=== PATIENT | male | born 1975 | race Caucasian/White ===

== ENCOUNTER 2021-06-28 21:12 | Emergency (ER) | payer OTHER, SELFPAY ==
[2021-06-28 21:16] VITALS: BP 138/79; PULSE 83; RESP 18; TEMP 36.6; O2SAT 98
--- NOTE | 2021-06-28 22:55 | ED.EYEPROB ---
HPI - Eye Problem General Chief complaint: Eye Problems Stated complaint: right eye pain Time Seen by Provider: 06/28/21 22:54 Source: patient Mode of arrival: ambulatory Limitations: no limitations History of Present Illness HPI Narrative: Patient is a 45-year-old male who presents for evaluation of right eye pain. 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 Patient with pain in the right eye, watering, tearing, mild redness. Patient denies visual change. Patient does not wear contact lenses or corrective glasses. Patient is up-to-date on his tetanus within the last 5 to 10 years. Patient denies any significant light sensitivity. He was able to drive himself to this facility to be evaluated. Related Data Allergies Allergy/AdvReac Type Severity Reaction Status Date / Time No Known Allergies Allergy Verified 06/28/21 21:37 Review of Systems Review of Systems: CONSTITUTIONAL: Denies fever HEENT: Right eye pain, redness, tearing CARDIOVASCULAR: Denies chest pain RESPIRATORY: Denies cough or dyspnea. GASTROINTESTINAL: Denies abdominal pain SKIN: Denies rash MUSCULOSKELETAL: Denies back pain NEUROLOGIC: Denies headache [facility] Social History Social History (Updated 06/29/21 @ 00:18 by Oxana Jackson MD) Smoking status: Current some day smoker Alcohol intake: current Alcohol use details: rare Occupation/Education: occupation Additional occupation/education comments: [place] [employer] Gender identity (if verbalized by the patient): Male Exam Narrative: GENERAL: Awake, alert, conversant HEAD: Normocephalic, atraumatic. EYES: 2+ PERRLA and EOMI. Tearing of the right eye. Conjunctival injection, right eye ENT: Nares clear, no rhinorrhea or epistaxis. Mucous membranes moist. NECK: Supple. CHEST: No respiratory distress, breathing even and non labored HEART: Regular rate, sinus rhythm ABDOMEN:Non distended, non tender EXTREMITIES: Normal range of motion. No edema. SKIN: Warm, dry, no rash. NEURO:No focal deficits. Alert and oriented x3 Course Vital Signs Vital signs: Vital Signs Temperature 36.6 C 06/28/21 21:16 Pulse Rate 83 06/28/21 21:16 Respiratory Rate 18 06/28/21 21:16 Blood Pressure 138/79 06/28/21 21:16 Pulse Oximetry 98 06/28/21 21:16 Temperature 36.6 C 06/28/21 21:16 Pulse Rate 83 06/28/21 21:16 Respiratory Rate 18 06/28/21 21:16 Blood Pressure 138/79 06/28/21 21:16 Pulse Oximetry 98 06/28/21 21:16 MDM - Eye Problem MDM Narrative Medical decision making narrative: Patient presenting for evaluation of foreign body sensation in the right eye. At the time of assessment, ABCs are intact and vital signs are stable. Visual acuity is intact, 20/20, OD, OS, OU. Patient does have right conjunctival injection, tearing fluorescein and tetracaine were applied to the right eye. Timur sign is negative. Patient does have a corneal abrasion overlying the inferior aspect of the pupil, does appear to have a foreign body overlying the superior aspect of the right pupil. After speaking with [facility] ophthalmology, they will remove the foreign body tomorrow due to location overlying the pupil. Patient was also offered transfer for evaluation by ophthalmology tonight at [facility] emergency department, with after discussing the risks and benefits of being seen in the ER tonight versus waiting until tomorrow morning, patient opted to be seen on an outpatient setting in the morning. Patient has an appointment this morning, 10 AM with [facility] ophthalmology. I advised the patient to be prescribed moxifloxacin to place in the right eye 4 times daily. This prescription as well as pain medication was called to the patient's pharmacy. Patient is up-to-date on his tetanus and does not require tetanus update. Patient was advised that if his visu
[2021-06-29 00:33] VITALS: BP 135/75; PULSE 90; RESP 16; O2SAT 98
== END 2021-06-29 00:29 | disposition home or self-care (01) ==
PROVIDERS: Emergency Provider Emergency Medicine
DX: T15.01XA Foreign body in cornea, right eye, initial encounter (principal); Y29.XXXA Contact with blunt object, undetermined intent, initial encounter
CPT/HCPCS: 99283

== ENCOUNTER 2023-02-10 01:34 | Day surgery (SDC) | payer BC, SELFPAY ==
[2023-02-03 15:54] VITALS: BMI 29.9
[2023-02-10 10:09] VITALS: BP 109/65; PULSE 76; RESP 16; TEMP 36.6; O2SAT 97
[2023-02-10] MEDS: LACTATED RINGERS 1,000 ML 150 ML IV CONT (10:21)
--- NOTE | 2023-02-10 10:55 | PM.HPGS ---
History of Present Illness History of Present Illness Consent: Risks, benefits, and alternatives have been discussed and questions answered. Patient agrees to proceed with procedure. Chief complaint: neoplasm screening Narrative: Willy Geller is a 47 year old male Presents for screening colonoscopy. Patient has a current weight appetite and bowel movements are normal. Patient denies abdominal pain. He has had no bleeding. Family history is noncontributory. Review of Systems Review of Systems: Review of systems noncontributory. [facility] Social History Social History (Updated 06/29/21 @ 00:18 by Oxana Jackson MD) Smoking packs per day: 3 Smoking cigarettes per day: 60.0 Smoking status: Former smoker Tobacco type: cigarettes Alcohol intake: current Drinks per week: 4 Alcohol use details: rare Substance use: current Substance use type: marijuana Other substance usage details: occasionally Living arrangements: with family Occupation/Education: occupation Additional occupation/education comments: [employer] Gender identity (if verbalized by the patient): Male Spiritual care concerns: No Meds Home Medications and Allergies Home Medications Medication Instructions Recorded Confirmed Type clonazepam 0.5 mg tablet 0.5 mg PO TID PRN Anxiety 02/03/23 02/03/23 History escitalopram oxalate 20 mg tablet 20 mg PO DAILY 02/03/23 02/03/23 History lamotrigine 200 mg tablet 200 mg PO DAILY 02/03/23 02/03/23 History serdexmethylphenidate 52.3 1 tablet PO DAILY 02/03/23 02/03/23 History mg-dexmethylphenidate 10.4 mg capsule (Azstarys) Allergies Allergy/AdvReac Type Severity Reaction Status Date / Time No Known Allergies Allergy Verified 02/10/23 10:08 Vital Signs Vital Signs - 24 hr 02/10/23 10:09 Temperature 97.9 F Pulse Rate 76 Respiratory Rate 16 Blood Pressure 109/65 Pulse Oximetry 97 Oxygen Delivery Room Air Exam Narrative: Physical exam reveals patient to be alert. Vital signs stable. HEENT exam is unremarkable. Patient is anicteric. Lungs are clear to auscultation and percussion. Heart is without murmur or extra sounds. Abdomen bowel sounds are present soft nontender with no organomegaly. Digital external rectal exam normal. Assessment and Plan Assessment and plan (1) Encounter for screening colonoscopy: Code(s): Z12.11 - Encounter for screening for malignant neoplasm of colon Status: Acute Assessment and Plan: Patient presents today for screening colonoscopy. Appears to be at average risk for colon polyps. Further recommendations may be given after endoscopy.
--- NOTE | 2023-02-10 11:26 | P.PNAN_ITS ---
Anes - Initial Pre Proc Eval Procedure: Operation Date: 02/10/23 11:30 Proposed Procedures p Screening Colonoscopy - Sawyer Arriaga MD Date/Time: 02/10/23 11:26 Surgeon: Sawyer Arriaga MD Pre Op Diagnosis: neoplasm screening Patient Data Age: 47 Gender: M Height: 1.83 m Weight: 100.3 kg Last Vital Signs Temp 97.9 F 02/10/23 10:09 Pulse 76 02/10/23 10:09 Resp 16 02/10/23 10:09 BP 109/65 02/10/23 10:09 Pulse Ox 97 02/10/23 10:09 O2 Del Method Room Air 02/10/23 10:09 Allergies Allergy/AdvReac Type Severity Reaction Status Date / Time No Known Allergies Allergy Verified 02/10/23 10:08 Home Medications Medication Instructions Recorded Confirmed Type clonazepam 0.5 mg tablet 0.5 mg PO TID PRN Anxiety 02/03/23 02/03/23 History escitalopram oxalate 20 mg tablet 20 mg PO DAILY 02/03/23 02/03/23 History lamotrigine 200 mg tablet 200 mg PO DAILY 02/03/23 02/03/23 History serdexmethylphenidate 52.3 1 tablet PO DAILY 02/03/23 02/03/23 History mg-dexmethylphenidate 10.4 mg capsule (Azstarys) Patient hx anesthesia problems: none Family hx anesthesia problems: none Results Review: All pre-operative results and documents have been reviewed as part of the pre- operative evaluation. [facility] Social History Social History (Updated 06/29/21 @ 00:18 by Oxana Jackson MD) Smoking packs per day: 3 Smoking cigarettes per day: 60.0 Smoking status: Former smoker Tobacco type: cigarettes Alcohol intake: current Drinks per week: 4 Alcohol use details: rare Substance use: current Substance use type: marijuana Other substance usage details: occasionally Living arrangements: with family Occupation/Education: occupation Additional occupation/education comments: [employer] [place] [employer] Gender identity (if verbalized by the patient): Male Spiritual care concerns: No Anes - Eval Final PreProcedure Day of Procedure 02/10/23 11:26 Patient weight: overweight Heart: regular rate and rhythm Lungs: clear to auscultation Airway: Mallampati scale class II Neurological: alert and oriented Last oral intake: >/= 8 hours ASA classification: II Emergent: no Anesthetic plan: proceed Anesthesia type and monitoring: general GIVS and standard monitoring Results Review: All pre-operative results and documents have been reviewed as part of the pre- operative evaluation. Informed Consent: The patient's anesthetic plan and its attendant risks and benefits were discussed with the patient/family/POA. Questions were solicited and answers provided to the satisfaction of the patient/family/POA.
[2023-02-10 11:51] VITALS: BP 91/56; PULSE 64; RESP 15; O2SAT 94
[2023-02-10 12:01] VITALS: BP 130/93; PULSE 59; RESP 18; O2SAT 99
[2023-02-10 12:11] VITALS: BP 124/87; PULSE 60; RESP 19; O2SAT 98
== END 2023-02-10 12:25 | disposition home or self-care (01) ==
PROVIDERS: PCP Family Medicine; Visit Provider Internal Medicine Gastroenterology
PROC: 0DJD8ZZ Inspection of Lower Intestinal Tract, Via Natural or Artificial Opening Endoscopic (ICD-10-PCS; CPT 45378; principal; 2023-02-10 11:30)
DX: Z12.11 Encounter for screening for malignant neoplasm of colon (principal); Z87.891 Personal history of nicotine dependence; F12.90 Cannabis use, unspecified, uncomplicated
CPT/HCPCS: 45378; J2704; J7120

== ENCOUNTER 2023-08-25 21:32 | Emergency (ER) | payer BC, SELFPAY ==
--- NOTE | ~2023-08-25 | XR_ITS ---
EXAMINATION: XR hand RT min 3V INDICATION: Right fifth finger pain, dog bite TECHNIQUE: Three views of the right hand are obtained on four radiographs. COMPARISON: None available FINDINGS: There are soft tissue lacerations at the distal aspect of the fifth finger. Bone alignment is normal. There appears to be a nondisplaced transverse tuft fracture of the fifth distal phalanx. T he joint spaces are normal. IMPRESSION: 1. Possible open transverse tuft fracture of the fifth distal phalanx. Reviewed, dictated and finalized at location F. AD DRESSER
[2023-08-25 21:36] VITALS: BP 142/86; PULSE 94; RESP 20; TEMP 36.6; O2SAT 97
[2023-08-26 02:31] VITALS: BP 132/75; PULSE 78; RESP 15; TEMP 36.7; O2SAT 100
--- NOTE | 2023-08-26 04:04 | ED.ANIMALBIT ---
HPI - Animal Bite General Chief Complaint: Animal Bite Stated Complaint: right pinky laceration/dog bite Time Seen by Provider: 08/26/23 02:44 Source: patient Limitations: no limitations History of Present Illness HPI narrative: Patient is a 47-year-old male presents to the emergency department complaining of a dog away. Patient states just prior to arrival in emergency department his 2 dogs were playing with a toy and he grabbed the toilet and is come down accidentally grabbed onto his finger where he was holding a toy with the dog's teeth. Patient admits to a cut over his right pinky finger without any significant pain or significant blood loss. Patient is right-handed. Patient denies history of injuries to this region. Patient denies decreased range of motion, lack of sensation, weakness, redness, fever. Patient has his last tetanus shot was last year. Patient notes his dogs are vaccinated and has been acting normally and he is able to monitor his dogs. Patient denies any other injuries. Related Data Home Medications Medication Instructions Recorded Confirmed clonazepam 0.5 mg tablet 0.5 mg PO TID PRN Anxiety 02/03/23 02/03/23 escitalopram oxalate 20 mg tablet 20 mg PO DAILY 02/03/23 02/03/23 lamotrigine 200 mg tablet 200 mg PO DAILY 02/03/23 02/03/23 serdexmethylphenidate 52.3 1 tablet PO DAILY 02/03/23 02/03/23 mg-dexmethylphenidate 10.4 mg capsule (Azstarys) Allergies Allergy/AdvReac Type Severity Reaction Status Date / Time No Known Allergies Allergy Verified 08/25/23 21:33 Review of Systems Review of Systems: A 10 system review of systems was completed on the patient and is negative except for what is stated in the HPI. Nursing and ancillary documentation was reviewed. [facility] Social History Social History (Updated 06/29/21 @ 00:18 by Oxana Jackson MD) Smoking packs per day: 3 Smoking cigarettes per day: 60.0 Smoking status: Former smoker Tobacco type: cigarettes Alcohol intake: current Drinks per week: 4 Alcohol use details: rare Substance use: current Substance use type: marijuana Other substance usage details: occasionally Living arrangements: with family Occupation/Education: occupation Additional occupation/education comments: [employer] Gender identity (if verbalized by the patient): Male Spiritual care concerns: No Comments At time of signature, I have reviewed and agree with nursing past medical, surgical, social and family history unless otherwise noted. Please see the nursing chart for further information. There is no relevant family history pertinent to the presenting complaint. Exam Narrative: CONST: No acute distress. Well nourished. CARDIO: 2+ radial pulses bilaterally. SKIN: No rashes. Small superficial hemostatic linear laceration with a depth of approximately 0.1 cm to the dorsum of the right 5th digit between the D IP and the nail that extends from the medial aspect to the lateral aspect wear along the lateral aspect did curves slightly inferior and has a partial skin tear, no foreign bodies, no surrounding erythema, no bony tenderness to palpation. NEURO: Oriented x3. Moves all extremities. No focal neurological deficits. EXTREM/MSK/BACK: No pedal edema. Range of motion intact of the right 5th finger in both flexion and extension, joint laxity, no joint space involvement of the wound, no nail bed involvement of the wound, no tendon or muscle involvement to the wound. Sensation intact to light touch throughout the right hand. Capillary refill is less than 2 seconds in the distal right 5th finger. Compartments are soft throughout. PSYCH: Normal affect. Course Vital Signs Vital signs: Vital Signs Temperature 97.9 F 08/25/23 21:36 Pulse Rate 94 08/25/23 21:36 Respiratory Rate 20 08/25/23 21:36 Blood Pressure 142/86 H 08/25/23 21:36 Pulse Oximetry 97 08/25/23 21:36 Oxygen Delivery Room Air 08/25/23 21:36
[2023-08-26] MEDS: AMOXICILLIN/CLAVULANATE K 875-125 MG TAB 1 TABLET PO (04:31)
[2023-08-26 04:36] VITALS: BP 145/76; PULSE 66; RESP 16; TEMP 36.8; O2SAT 99
== END 2023-08-26 04:37 | disposition home or self-care (01) ==
PROVIDERS: Emergency Provider Student in an Organized Health Care Education/Training Program; PCP Family Medicine
DX: S61.256A Open bite of right little finger without damage to nail, initial encounter (principal); Z87.891 Personal history of nicotine dependence; R93.6 Abnormal findings on diagnostic imaging of limbs
CPT/HCPCS: 73130; 99283; A9270

== ENCOUNTER 2023-09-28 13:17 | Observation (INO) | payer BC, SELFPAY ==
[2023-09-28] VITALS (14 sets, daily range): BP systolic 114–147; BP diastolic 62–98; PULSE 68–97; RESP 15–22; TEMP 35.6–37.1; O2SAT 98–100; BMI 32.3
--- NOTE | ~2023-09-28 | XR_ITS ---
EXAMINATION: XR chest 1V portable INDICATION: Shortness of breath, COVID 19 TECHNIQUE: Portable AP chest at 1309 hours COMPARISON: None available FINDINGS: There is mild atelectasis of the lung bases. No pleural effusion or pneumothorax. The cardi omediastinal silhouette is normal. IMPRESSION: 1. Mild atelectasis of the lung bases. Reviewed, dictated and finalized at location B. ER BLANKETS
--- NOTE | ~2023-09-28 | CT_ITS ---
EXAMINATION: CT abdomen pelvis w con DATE: 09/28/2023 15:45 INDICATION: Nausea and vomiting. Abdominal pain. TECHNIQUE: Computed tomography (CT) of the abdomen and pelvis was performed with 100 mL Omnipaque 350 intravenous contrast. Automated exposure control and iterative reconstruction technique were employe d. The dose-length product was 888.46 mGy-cm. COMPARISON: None. FINDINGS: The visualized portions of the lung bases demonstrate mild atelectasis. No pleural effusion . The heart size is normal. No pericardial effusion. The liver, gallbladder, spleen, pancreas, and ad renal glands are normal. There is a 2 mm stone in right kidney. There are 2 mm and 4 mm stones in lef t kidney. There is a 5 mm cyst in left kidney. There is focal hypoenhancement in left kidney. There i s diverticulosis of the colon without evidence of diverticulitis. There are no dilated loops of bowel . The appendix is normal. Aortic atherosclerosis is noted. There are no pathologically enlarged lymph nodes. There is no free intraperitoneal fluid. There is severe lumbar spondylosis and moderate thora cic spondylosis. IMPRESSION: 1. Focal hypoenhancement in left kidney, consistent with pyelonephritis versus infarct. Reviewed, dictated and finalized at location E. OPULPER
--- NOTE | ~2023-09-28 | CT_ITS ---
EXAMINATION: CTA abdomen pelvis DATE: 09/29/2023 11:14 INDICATION: Renal infarct TECHNIQUE: Computed tomographic angiography (CTA) of the abdomen and pelvis was performed with 100 mL Omnipaque-350 intravenous contrast. Additional 3D reconstructions utilizing rotating maximum intensi ty projection (MIP) were performed. Automated exposure control and iterative reconstruction technique were employed. The dose-length product was 722.46 mGy-cm. COMPARISON: None FINDINGS: Mild discoid atelectasis at the lingula and left lower lobe. Heart size is normal. No pericardial or pleural effusion. Liver, gallbladder, spleen, pancreas and bilateral adrenal glands are normal. Uncha nged 2 mm nonobstructing nephrolithiasis with 2 mm stone in the mid right kidney and 4 mm stone at th e mid left kidney and 2 mm stone at the inferior left kidney. Again seen is subtle decreased cortical enhancement in the same region of the left kidney is previous identified for which differential keny ins ischemia versus infection. Multiple diverticula predominantly along the sigmoid colon without adj acent inflammatory stranding to suggest diverticulitis. Small bowel and appendix are normal. Bladder is normal. No free intraperitoneal gas or fluid. No pathologically enlarged abdominal or pelvic lymph adenopathy. There is minimal scattered atherosclerotic plaque along the infrarenal aorta and bilatera l common iliac arteries. No hemodynamically significant stenosis, aneurysm or dissection along the ao rta or its major branch vessels including the renal arteries. Moderate to severe lumbar and moderate lower thoracic spondylosis. IMPRESSION: 1. Unchanged small geographic region of cortical hypoenhancement in the left kidney which could be re lated to ischemia or infection. There is however no evident thrombosis or atherosclerotic plaque/sten osis along the left renal artery with only minimal plaque in the infrarenal aorta and bilateral commo n iliac arteries. Reviewed, dictated and finalized at location A. DEVELOPER IMPRESSION: 1. Unchanged small geographic region of cortical hypoenhancement in the left ki dney which could be related to ischemia or infection. There is however no evide nt thrombosis or atherosclerotic plaque/stenosis along the left renal artery wi th only minimal plaque in the infrarenal aorta and bilateral common iliac arter ies.
--- NOTE | 2023-09-28 14:12 | ED.NAVMDI ---
HPI - Nausea/Vomiting/Diarrhea General Chief complaint: Nausea/Vomiting/Diarrhea Stated complaint: nausea and vomitting Time Seen by Provider: 09/28/23 14:11 Source: patient Mode of arrival: ambulatory Limitations: no limitations History of Present Illness HPI Narrative: 47 years old white male had COVID symptoms 4 days ago, fever, chills, fatigue, diaphoresis. Workup this morning with severe as steady nausea and vomiting nonstop currently dry heaves. He denies diarrhea or fever right now. Patient complain of abdominal pain feels like something squeezing and grabbing his organs. History of anxiety and depression. Related Data Home Medications Medication Instructions Recorded Confirmed clonazepam 0.5 mg tablet 0.5 mg PO TID PRN Anxiety 02/03/23 02/03/23 escitalopram oxalate 20 mg tablet 20 mg PO DAILY 02/03/23 02/03/23 lamotrigine 200 mg tablet 200 mg PO DAILY 02/03/23 02/03/23 serdexmethylphenidate 52.3 1 tablet PO DAILY 02/03/23 02/03/23 mg-dexmethylphenidate 10.4 mg capsule (Azstarys) Allergies Allergy/AdvReac Type Severity Reaction Status Date / Time No Known Allergies Allergy Verified 08/25/23 21:33 Review of Systems Review of Systems: All systems reviewed & are unremarkable except as noted in HPI and below PMFSH Social History Social History Smoking packs per day: 3 Smoking cigarettes per day: 60.0 Smoking status: Former smoker Tobacco type: cigarettes Alcohol intake: current Drinks per week: 4 Alcohol use details: rare Substance use: current Substance use type: marijuana Other substance usage details: occasionally Living arrangements: with family Occupation/Education: occupation Additional occupation/education comments: [place] [employer] Gender identity (if verbalized by the patient): Male Spiritual care concerns: No Exam Narrative: General appearance: Well-developed, well-nourished Skin: Normal color Head: Normocephalic, nontraumatic Eyes: Clear conjunctiva ENT: Oropharynx normal, ears normal, nose normal Neck: Supple, nontender Chest and respiratory: Airway patent, no respiratory distress, no accessory muscle use Heart: Regular rate/rhythm Abdomen: Soft, nontender, no organomegaly, quiet bowel sounds Vascular: Normal peripheral pulses, normal capillary refill. Musculoskeletal: Normal range of motion, nontender back Neurologic: Alert and oriented ?3, [employer]AND[employer] is normal as tested, no gross motor deficit Course Consultations Consultation #1: sandeep Supportive care, IV fluid, no significant intervention at this time. Date: 09/28/23 Time: 18:45 Consultation #2: DR. DUGGAN NO INTERVENTION AT THIS TIME. SUPPORTIVE CARE. Date: 09/28/23 Time: 20:09 Vital Signs Vital signs: Vital Signs Temperature 35.6 C L 09/28/23 13:28 Pulse Rate 86 09/28/23 13:28 Respiratory Rate 20 09/28/23 13:28 Blood Pressure 147/92 H 09/28/23 13:28 Pulse Oximetry 100 09/28/23 13:28 Oxygen Delivery Room Air 09/28/23 13:28 Temperature 35.6 C L 09/28/23 13:28 Pulse Rate 86 09/28/23 19:19 Respiratory Rate 15 09/28/23 19:19 Blood Pressure 114/62 09/28/23 19:19 Pulse Oximetry 98 09/28/23 19:19 Oxygen Delivery Room Air 09/28/23 13:28 MDM - Nausea/Vomiting/Diarrhea MDM Narrative Medical decision making narrative: PATIENT HAD COUGH SYMPTOM 4 DAYS AGO, TESTED POSITIVE 1 DAYS LATER, STARTED HAVING SEVERE NAUSEA AND VOMITING NONSTOP IN THE LAST 24 HOURS WITH SEVERE ABDOMINAL PAIN, PHYSICAL EXAMINATION CONSISTENT WITH ANXIOUS RESTLESS PATIENT, VITAL SIGNS ON ARRIVAL ARE STABLE, DIFFERENTIAL DIAGNOSIS ELECTROLYTE IM
[2023-09-28] MEDS: SODIUM CHLORIDE 0.9% IV 2,000 ML 999 ML IV CONT (14:26)
[2023-09-28] MEDS: ONDANSETRON INJ 4 MG/2 ML VIAL 8 MG IV PUSH (14:26)
[2023-09-28 14:34] LABS: Basophils Percent Auto 0.2 % (0.2-1.2); Hematocrit 50.4 % (42.0-52.0); Hemoglobin 16.9 g/dL (14.0-18.0); Immature Granulocyte Absolute 0.03 K/mm3 (0.00-0.031); Immature Granulocyte Percent A 0.3 % (0-0.5); Lymphocytes Absolute Auto 1.02 K/mm3 (0.9-3.2); Mean Corpuscular HGB Conc 33.5 g/dl (32-36); Mean Corpuscular Hemoglobin 30.1 pg (26-34); Mean Corpuscular Volume 89.7 fl (80-100); Mean Platelet Volume 8.8 fl (7.4-10.4); Monocytes Absolute Auto 0.6 K/mm3 (0.1-0.6); Monocytes Percent Auto 6.3 % (2.6-8.5); Neutrophils Absolute Auto 8.5 K/mm3 (1.3-6.7); Neutrophils Percent Auto 83.2 % (45.5-73.1); Platelet Count Result 384 k/mm3 (150-375); Red Blood Count 5.62 M/mm3 (4.6-6.20); Red Cell Distribution Width 13.2 % (11.5-14.5); White Blood Count 10.2 K/mm3 (4.5-10.0)
[2023-09-28 14:48] LABS: Alanine Aminotransferase 32 U/L (6-50); Alkaline Phosphatase 86 U/L (38-126); Anion Gap 16 mmol/L (8-16); Aspartate Amino Transferase 29 U/L (17-59); Bilirubin,Total 0.6 mg/dL (0.2-1.3); Blood Urea Nitrogen 20 mg/dL (9-20); Calcium 9.8 mg/dL (8.4-10.2); Carbon Dioxide 21 mmol/L (22-30); Chloride 102 mmol/L (98-107); Estimated CRCL calculation 110 ml/min; Estimated Glomerular Filt Rate > 60; Glucose 190 mg/dL (65-110); Lipase 28 U/L (23-300); Potassium 3.8 mmol/L (3.4-5.0); Sodium 139 mmol/L (137-145)
[2023-09-28] MEDS: KETOROLAC 30 MG/ML VIAL (*BKC) IV PUSH (15:45)
[2023-09-28 18:18] LABS: Appearance Urine Clear (Clear); Bacteria Urine None Seen /hpf; Bilirubin Urine Negative (Negative); Blood Urine Trace (Negative); Color Urine Yellow (Yellow); Glucose Urine UA Negative (Negative); Ketones Urine 1+ mg/dL (Negative); Leukocyte Esterase Ur Negative LEU/UL (Negative); Nitrate Urine Negative (Negative); Non Pathogenic Casts 0-2; Protein Urine Trace mg/dL (Negative); RBC Urine 0-2 /hpf (0-2); Squamous Epithelial Cell Urine None seen /hpf (Few); Urobilinogen Urine 0.2 mg/dL (<2.0); WBC Urine 0-5 /hpf; pH Urine 6.5 (5.0-9.0)
[2023-09-28] MEDS: METOCLOPRAMIDE HCL INJ 10 MG/2 ML VIAL IV PUSH (18:25)
[2023-09-28] MEDS: diphenhydrAMINE HCl INJ 50 MG/ML VIAL IV PUSH (18:25)
[2023-09-28 18:31] LABS: Add Urine Microscopic? YES; Specific Grav Ur 1.061 (1.001-1.035)
[2023-09-28 19:39] LABS: D Dimer < 0.27 ug/mL (<0.48)
[2023-09-28] MEDS: SODIUM CHLORIDE 0.9% IV 1,000 ML 150 ML IV CONT (19:51)
--- NOTE | 2023-09-28 20:44 | WPDURCON ---
Urology Consult Note HPI Date Seen: 09/28/23 Requesting Physician: Lawrence Kendrick MD Primary Care Provider: Isabell Kessler, Consult Narrative Narrative: Willy Geller is a 47 year old male Chart reviewed Comes in the N/V/abdom pain Has COVID 19. CT shows area of renal infarction vs Pyelonephritis. UA normal. 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 I searched literature. Rare occurance. Renal function recovers. Current creatinine normal. Literature states that consideration can be given to oral anticoagulation. Will defer to primary team. No need for urologic intervention PMFSH Social History Social History Smoking packs per day: 3 Smoking cigarettes per day: 60.0 Smoking status: Former smoker Tobacco type: cigarettes Alcohol intake: current Drinks per week: 4 Alcohol use details: rare Substance use: current Substance use type: marijuana Other substance usage details: occasionally Living arrangements: with family Occupation/Education: occupation Additional occupation/education comments: [employer] Gender identity (if verbalized by the patient): Male Spiritual care concerns: No Meds Home Medications and Allergies Home Medications Medication Instructions Recorded Confirmed Type clonazepam 0.5 mg tablet 0.5 mg PO TID PRN Anxiety 02/03/23 02/03/23 History escitalopram oxalate 20 mg tablet 20 mg PO DAILY 02/03/23 02/03/23 History lamotrigine 200 mg tablet 200 mg PO DAILY 02/03/23 02/03/23 History serdexmethylphenidate 52.3 1 tablet PO DAILY 02/03/23 02/03/23 History mg-dexmethylphenidate 10.4 mg capsule (Azstarys) acetaminophen 500 mg tablet 500 mg PO Q6H PRN pain #30 tabs 08/26/23 Rx amoxicillin 875 mg-potassium 1 tablet PO Q12H 9 days #18 tabs 08/26/23 Rx clavulanate 125 mg tablet Allergies Allergy/AdvReac Type Severity Reaction Status Date / Time No Known Allergies Allergy Verified 08/25/23 21:33 Vital Signs Vital Signs - 24 hr 09/28/23 13:28 09/28/23 14:26 09/28/23 14:31 Temperature 96.0 F L Pulse Rate 86 68 73 Respiratory Rate 20 20 16 Blood Pressure 147/92 H 146/92 H 143/98 H Pulse Oximetry 100 100 100 Oxygen Delivery Room Air 09/28/23 14:46 09/28/23 15:47 09/28/23 16:07 Temperature Pulse Rate 96 97 84 Respiratory Rate 16 20 18 Blood Pressure 145/96 H 147/84 H 139/96 H Pulse Oximetry 98 99 98 Oxygen Delivery 09/28/23 17:48 09/28/23 18:30 09/28/23 19:19 Temperature Pulse Rate 80 89 86 Respiratory Rate 15 22 H 15 Blood Pressure 138/96 H 138/96 H 114/62 Pulse Oximetry 99 98 98 Oxygen Delivery Results Labs 09/28/23 14:28 09/28/23 14:28 Labs: Short CBC 09/28/23 Range/Units 14:28 WBC 10.2 H (4.5-10.0) K/mm3 Hgb 16.9 (14.0-18.0) g/dL Hct 50.4 (42.0-52.0) % Plt Count 384 H (150-375) k/mm3 BMP 09/28/23 14:28 Sodium 139 Potassium 3.8 Chloride 102 Carbon Dioxide 21 L BUN 20 Creatinine 0.80 Glucose 190 H Calcium 9.8 Liver Function 09/28/23 Range/Units 14:28 Total Bilirubin 0.6 (0.2-1.3) mg/dL AST 29 (17-59) U/L ALT 32 (6-50) U/L Alkaline Phosphatase 86 (38-126) U/L Albumin 5.0 (3.5-5.1) g/dL Urine 09/28/23 Range/Units 17:46 Urine Color Yellow (Yellow) Urine Appearance Clear (Clear) Urine pH 6.5 (5.0-9.0) Ur Specific [place] 1.061 H (1.001-1.035) Urine Protein Trace (Negative) mg/dL Urine Glucose (UA) Negative (Negative) mg/dL
[2023-09-28] MEDS: ONDANSETRON INJ 4 MG/2 ML VIAL IV PUSH (21:40)
[2023-09-28] MEDS: LORazepam INJ (*CRX) 2 MG/ML VIAL 1 MG IV PUSH (23:38)
[2023-09-29] MEDS: ONDANSETRON INJ 4 MG/2 ML VIAL IV PUSH ×2 (02:49→08:49)
[2023-09-29] MEDS: PROMETHAZINE HCL 25 MG/ML AMPUL 12.5 MG IV PUSH (03:40)
[2023-09-29 06:00] VITALS: BP 115/77; PULSE 80; RESP 20; TEMP 36.9; O2SAT 99
--- NOTE | 2023-09-29 10:03 | PM.IMHP ---
H&P: HPI History of Present Illness Date/Time: 09/29/23 10:03 Chief Complaint: Abdomen pain Narrative: 47 years old man with history of anxiety, GERD, present ED with a chief complaint of nausea vomiting. Patient started to have chills, sneezing, diaphragmatic symptom on Monday. On Monday, patient was found have COVID infection on test of the [id number]-[id number] kit. Since Monday, patient has been having nausea vomiting. Patient denies abdomen pain, diarrhea. Patient woke up yesterday morning, has been having worsening nausea and vomiting. Patient also has abdomen pain feeling like squeezing pain bilateral back. Upon arrival in the ED, patient was afebrile, blood pressure stable, pulse ox 100% on room air, CT abdomen pelvis suggest a focal hypoenhancement in the left kidney, suspecting pyelonephritis versus infarct, urinalysis unremarkable does not suggest UTI lab showed mild leukocytosis, 10,200 PMFSH Family History Family History (Updated 09/28/23 @ 21:57 by Melissa Navarrete RN) Father OCD (obsessive compulsive disorder) Mother Breast cancer Thyroid ca Social History Social History Smoking packs per day: 3 Smoking cigarettes per day: 60.0 Smoking status: Former smoker Tobacco type: cigarettes Alcohol intake: current Drinks per week: 2 Alcohol use details: rare Substance use: current Substance use type: marijuana Other substance usage details: occasionally Do You Feel Safe in your Home?: Yes Lack of Transportation: No Lack of Food: Never True Current Housing: I Have Housing Concerned About Future Housing: No Difficulty Paying Gas/Electric Bills: No Difficulty Paying for Meds: No Currently Unemployed: No Education: Trade/Vocational Certificate Difficulty w/ Childcare or Family Care: No Living arrangements: with family Occupation/Education: occupation Additional occupation/education comments: [employer] Gender identity (if verbalized by the patient): Male Spiritual care concerns: No Meds Home Medications and Allergies Home Medications Medication Instructions Recorded Confirmed Type clonazepam 0.5 mg tablet 0.5 mg PO TID PRN Anxiety 02/03/23 09/28/23 History escitalopram oxalate 20 mg tablet 20 mg PO DAILY 02/03/23 09/28/23 History lamotrigine 200 mg tablet 200 mg PO DAILY 02/03/23 09/28/23 History acetaminophen 500 mg tablet 500 mg PO Q6H PRN pain #30 tabs 08/26/23 09/28/23 Rx lisdexamfetamine 60 mg capsule 60 mg PO DAILY 09/28/23 09/28/23 History pantoprazole 40 mg tablet,delayed 40 mg PO DAILY 09/28/23 09/28/23 History release serdexmethylphenidate 52.3 1 cap PO QAM 09/29/23 09/29/23 History mg-dexmethylphenidate 10.4 mg capsule (Azstarys) Allergies Allergy/AdvReac Type Severity Reaction Status Date / Time No Known Allergies Allergy Verified 08/25/23 21:33 Vital Signs Vital Signs - 24 hr 09/28/23 13:28 09/28/23 14:26 09/28/23 14:31 Temperature 96.0 F L Pulse Rate 86 68 73 Respiratory Rate 20 20 16 Blood Pressure 147/92 H 146/92 H 143/98 H Pulse Oximetry 100 100 100 Oxygen Delivery Room Air 09/28/23 14:46 09/28/23 15:47 09/28/23 16:07 Temperature Pulse Rate 96 97 84 Respiratory Rate 16 20 18 Blood Pressure 145/96 H 147/84 H 139/96 H Pulse Oximetry 98 99 98 Oxygen Delivery 09/28/23 17:48 09/28/23 18:30 09/28/23 19:19 Temperature Pulse Rate 80 89 86 Respiratory Rate 15 22 H 15 Blood Pressure 138/96 H 138/96 H 114/62 Pulse Oximetry 99 98 98 Oxygen Delivery 09/28/23 22:12 09/28/23 22:13 09/28/23 22:16 Temperature 98.8 F 98.8 F Pulse Rate 86 87 77 Respiratory Rate 15 20 20 Blood Pressure 130/90 132/93 H Pulse Oximetry 98 98 98 Oxygen Delivery Room Air 09/28/23 22:10 09/28/23 22:20 09/29/23 06:00 Temperature 98.8 F 98.8 F 98.4 F Pulse Rate 87 88 80 Respiratory Rate 20 20 20 Blood Pressure 130/90 129/94 H 115/77 Pulse Oxime
[2023-09-29] MEDS: dexAMETHasone 2 MG TABLET 6 MG PO (11:42)
[2023-09-29] MEDS: lamoTRIgine 100 MG TABLET 200 MG PO (11:42)
[2023-09-29] MEDS: PANTOPRAZOLE 40 MG TABLET PO (11:42)
[2023-09-29] MEDS: CLOPIDOGREL BISULFATE 75 MG TABLET PO (11:42)
[2023-09-29] MEDS: SODIUM CHLORIDE 0.9% IV 1,000 ML 150 ML IV CONT (13:15)
[2023-09-29] MEDS: clonazePAM (*CRX) 0.5 MG TABLET PO ×2 (13:40→18:27)
[2023-09-29 14:00] VITALS: BP 132/88; PULSE 79; RESP 16; TEMP 37.1; O2SAT 97
--- NOTE | 2023-09-29 14:24 | ECHO_ITS ---
Patient Info Name: Willy Geller Age: 47 years : 1975 Gender: Male Ht: 72 in Wt: 220 lbs BSA: 2.27 m2 HR: 80 bpm BP: 115 / 77 mmHg Heart Rhythm: Sinus Rhythm Technical Quality: Good Exam Date: 09/29/2023 4:14 PM Exam Location: Echo Lab Patient Status: Inpatient Admit Date: 09/28/2023 Staff Ordering Physician: Pooja Torres MD Freight Broker: Brooks Braswell RDCS Attending Provider: Lawrence Kendrick MD Exam Type: CA echo doppler color flow Study Info Indications - renal infarct Complete two-dimensional, color flow and Doppler transthoracic echocardiogram is performed. Summary 1. Complete two-dimensional, color flow and Doppler transthoracic echocardiogram is performed. 2. Left ventricular chamber dimension is normal. 3. Left ventricular systolic function is normal, estimated at 60-65%. 4. There is no increased left ventricular wall thickness. 5. The left ventricular diastolic function is grade I diastolic dysfunction. 6. Right atrial chamber dimension is mildly enlarged. 7. There is no aortic valve stenosis. 8. There is trace tricuspid valve regurgitation. 9. No pulmonary hypertension, estimated pulmonary arterial systolic pressure is 12 mmHg. Left Ventricle Left ventricular chamber dimension is normal. Left ventricular systolic function is normal, estimated at 60-65%. There is no increased left ventricular wall thickness. The left ventricular diastolic function is grade I diastolic dysfunction. Right Ventricle Right ventricular chamber dimension is normal. Right ventricular systolic function is normal. Left Atria Left atrial chamber dimension is normal. Right Atria Right atrial chamber dimension is mildly enlarged. Aortic Valve The aortic valve is not well visualized. There is no aortic valve stenosis. There is no aortic valve regurgitation. Pulmonic Valve The pulmonic valve is not well visualized. There is trace pulmonic regurgitation. Mitral Valve The mitral valve has normal leaflets. There is trace mitral valve regurgitation. Tricuspid Valve The tricuspid valve leaflets are normal. There is trace tricuspid valve regurgitation. No pulmonary hypertension, estimated pulmonary arterial systolic pressure is 12 mmHg. Pericardium/Pleural The pericardium appears normal. There is no pericardial effusion. Inferior Vena Cava Normal inferior vena cava with >50% collapse upon inspiration consistent with normal right atrial pressure, 5 mmHg. Aorta The aortic root size at the sinus of Valsalva is normal. Left Ventricular Outflow Tract Name Value Normal LVOT 2D LVOT Diameter 2.3 cm LVOT Doppler LVOT Peak Gradient 3 mmHg LVOT Mean Gradient 2 mmHg LVOT VTI 21 cm LVOT VTI/AV VTI Ratio 0.9 LVOT Stroke Volume 85 ml LVOT CO 6.2 l/min LVOT CI 2.7 l/min/m2 Pulmonic Valve Name Value Normal
[2023-09-29 20:00] VITALS: PULSE 79; RESP 16; O2SAT 97
[2023-09-29 22:10] VITALS: BP 134/91; PULSE 76; RESP 20; TEMP 36.5; O2SAT 98
[2023-09-30 06:00] VITALS: BP 131/97; PULSE 68; RESP 20; TEMP 36.8; O2SAT 98
--- NOTE | 2023-09-30 07:34 | PM.IMPN ---
Progress Note: A&P Assessment and Plan (1) Renal infarct: Code(s): N28.0 - Ischemia and infarction of kidney Status: Acute (2) Intractable vomiting: Code(s): R11.10 - Vomiting, unspecified Status: Acute (3) COVID-19: Code(s): U07.1 - COVID-19 Status: Acute (4) ADD (attention deficit disorder): Code(s): F98.8 - Other specified behavioral and emotional disorders with onset usually occurring in childhood and adolescence Status: Acute Plan Intractable nausea vomiting Likely resulting from COVID infection Patient is afebrile, Start antiemetic medication as needed Advance from full liquid diet to regular diet Follow-up drug screening Acute renal infarct Sudden abdomen pain yesterday, CT scan report renal infarction versus a pyelonephritis Urinalysis normal, no sign of your infection Urologist was consulted, considers renal infarction associated with COVID-19. CTA abdominal aorta and abdomen pelvis today it revealed unchanged small geographic region of cortical hypoenhancement in the left kidney which could be related to ischemia or infection. There is however no evident thrombosis or atherosclerotic plaque/stenosis along the left renal artery with only minimal plaque in the infrarenal aorta and bilateral common iliac arteries. No indication for surgical treatment start Plavix 75 mg daily p.o. Follow-up echocardiogram with bubble study. Pending report No obstructive bilateral kidney stones Urologist is consulted Patient had bilateral flank pain COVID infection CT shows no acute pulmonary issue, no O2 desaturation Antiviral medication is not warranted Will provide dexamethasone 6 mg daily p.o. Anxiety Continue home medications Subjective Date/time seen: 09/30/23 07:34 Interval history: I saw and examined patient today, patient denies abdomen pain, nausea vomiting. Tolerated diet well. Patient denies chest pain, palpitation, headache Exam Narrative: GENERAL: Pleasant, in no acute distress. Well-nourished. - EYES: EOMI. Anicteric. - HENT: Moist mucous membranes. - LUNGS: Clear to auscultation bilaterally, no wheezing, rhonchi, or rales. - CARDIOVASCULAR: Regular rate and rhythm. No murmur. No JVD. - ABDOMEN: Soft, non-tender and non-distended. No palpable masses. - EXTREMITIES: No edema. Peripheral pulses 2+. Non-tender. - NEUROLOGIC: No focal neurological deficits. CN II-XII grossly intact. - PSYCHIATRIC: Awake, Alert and oriented x 3. Appropriate mood and affect. - SKIN: No rashes or lesions. Warm. - LYMPH: No cervical lymphadenopathy. Objective Data Vital Signs Vital Signs: Vital Signs - 24 hr 09/29/23 08:20 09/29/23 14:00 09/29/23 20:00 Temperature 98.8 F Pulse Rate 79 79 Respiratory Rate 16 16 Blood Pressure 132/88 Pulse Oximetry 97 97 Oxygen Delivery Room Air Room Air 09/29/23 22:10 Temperature 97.7 F Pulse Rate 76 Respiratory Rate 20 Blood Pressure 134/91 H Pulse Oximetry 98 Oxygen Delivery Intake/Output Intake/Output: Intake & Output 09/27/23 09/28/23 09/29/23 09/30/23 23:59 23:59 23:59 23:59 Intake Total 2050 2950 Output Total 100 500 Balance 1950 2450 Meds/Results Medications: Active Medications Generic Name Dose Route Start Last Admin Trade Name Freq PRN Reason Stop Dose Admin Acetaminophen 500 mg 09/29/23 10:06 Acetaminophen 500 Mg Tablet PO Q6H PRN pain Clonazepam 0.5 mg 09/29/23 10:06 09/29/23 18:27 Clonazepam (*Crx) 0.5 Mg Tablet PO 0.5 mg TID PRN Administration Anxiety Clopidogrel Bisulfate 75 mg 09/29/23 10:35 09/29/23 11:42 Clopidogrel Bisulfate 75 Mg Tablet PO 75 mg QAM TERESA Administration Dexamethasone 6 mg 09/29/23 10:55 09/29/23 11:42 Dexamethasone 2 Mg Tablet PO 10/08/23 08:01 6 mg DAILY@0800 TERESA Administration Hydromorphone HCl 0.5 mg 09/28/23 18:46 Hydromorphone Hcl Inj (*Crx) 1 Mg/Ml Syr IV P
[2023-09-30] MEDS: dexAMETHasone 2 MG TABLET 6 MG PO (10:00)
[2023-09-30] MEDS: lamoTRIgine 100 MG TABLET 200 MG PO (10:00)
[2023-09-30] MEDS: PANTOPRAZOLE 40 MG TABLET PO (10:00)
[2023-09-30] MEDS: clonazePAM (*CRX) 0.5 MG TABLET PO (10:07)
[2023-09-30] MEDS: CLOPIDOGREL BISULFATE 75 MG TABLET PO (10:07)
--- NOTE | 2023-09-30 14:41 | PM.DS ---
DS: Admitting Diagnosis Discharge Date 09/30/23 Admitting Diagnosis (1) Renal infarct: ?Code(s): N28.0 - Ischemia and infarction of kidney ?Status:?Acute (2) Intractable vomiting: ?Code(s): R11.10 - Vomiting, unspecified ?Status:?Acute (3) COVID-19: ?Code(s): U07.1 - COVID-19 ?Status:?Acute (4) ADD (attention deficit disorder): ?Code(s): F98.8 - Other specified behavioral and emotional disorders with onset usually occurring in childhood and adolescence ?Status:?Acute DS: Discharge Diagnosis Discharge Diagnosis (1) Renal infarct: Code(s): N28.0 - Ischemia and infarction of kidney Status: Acute (2) Intractable vomiting: Code(s): R11.10 - Vomiting, unspecified Status: Acute (3) COVID-19: Code(s): U07.1 - COVID-19 Status: Acute (4) ADD (attention deficit disorder): Code(s): F98.8 - Other specified behavioral and emotional disorders with onset usually occurring in childhood and adolescence Status: Acute DS: Summary Hospital Course Hospital Course: 47 years old man with history of anxiety, GERD, present ED with a chief complaint of nausea vomiting.? Patient started to have chills, sneezing, diaphragmatic symptom on Monday.? On Monday, patient was found have COVID infection on test of the vpsq-boy-dbwvqql kit.? Since Monday, patient has been having nausea vomiting.? Patient denies abdomen pain, diarrhea.? Patient woke up yesterday morning, has been having worsening nausea and vomiting.? Patient also has abdomen pain feeling like squeezing pain bilateral back.? Upon arrival in the ED, patient was afebrile, blood pressure stable, pulse ox 100% on room air, CT abdomen pelvis suggest a focal hypoenhancement in the left kidney, suspecting pyelonephritis versus infarct, urinalysis unremarkable does not suggest UTI lab showed mild leukocytosis, 10,200 Intractable nausea vomiting Likely resulting from COVID infection Patient is afebrile, Start antiemetic medication as needed Advance from full liquid diet to regular diet drug screening odered not collected Now patient tolerated regular diet well, denies nausea vomiting abdomen pain Acute renal infarct Sudden abdomen pain yesterday, CT scan report renal infarction versus a pyelonephritis Urinalysis normal, no sign of your infection Urologist was consulted, considers renal infarction associated with COVID-19. CTA abdominal aorta and abdomen pelvis today it revealed unchanged small geographic region of cortical hypoenhancement in the left kidney which could be related to ischemia or infection. There is however no evident thrombosis or atherosclerotic plaque/stenosis along the left renal artery with only minimal plaque in the infrarenal aorta and bilateral common iliac arteries. No indication for surgical treatment start Plavix 75 mg daily p.o. Follow-up echocardiogram with bubble study. Pending report. pt wishes to be dc, advised patient to see primary care doctor for follow-up No obstructive bilateral kidney stones Urologist is consulted, no intervention recommended Patient had bilateral flank pain COVID infection CT shows no acute pulmonary issue, no O2 desaturation Antiviral medication is not warranted, I discussed with the ID pharmacist on 09/29 Will provide dexamethasone 6 mg daily p.o. for total 10 days Anxiety Continue home medications Patient will discharge home today Time Spent with Patient Time attestation: Total time spent providing and/or coordinating discharge services: Exam Narrative: GENERAL: Pleasant, in no acute distress. Well-nourished. - EYES: EOMI. Anicteric. - HENT: Moist mucous membranes. - LUNGS: Clear to auscultation bilaterally, no wheezing, rhonchi, or rales. - CARDIOVASCULAR: Regular rate and rhythm. No murmur. No JVD. - ABDOMEN: Soft, non-tender and non-distended. No palpable masses. - EXTREMITIES: No edema. Peripheral pulses 2+. Non
== END 2023-09-30 15:00 | disposition home or self-care (01) ==
LOC: ANHED 18:45 → ANH3MED 09-29 10:21
PROVIDERS: Admitting Provider Family Medicine; Emergency Provider Emergency Medicine; PCP Family Medicine; Visit Provider Hospitalist
DX: N28.0 Ischemia and infarction of kidney (principal); U07.1 COVID-19; F98.8 Other specified behavioral and emotional disorders with onset usually occurring in childhood and adolescence; F41.9 Anxiety disorder, unspecified; F32.A Depression, unspecified; K21.9 Gastro-esophageal reflux disease without esophagitis; I51.89 Other ill-defined heart diseases; F10.90 Alcohol use, unspecified, uncomplicated; F12.90 Cannabis use, unspecified, uncomplicated; Z79.1 Long term (current) use of non-steroidal anti-inflammatories (NSAID); Z87.891 Personal history of nicotine dependence; Z79.899 Other long term (current) drug therapy
CPT/HCPCS: 36415; 71045; 74174; 74177; 80053; 81001; 83690; 85025; 85380; 93306; 96361; 96365; 96375; 96376; 99285; A9270; G0378; J0696; J1200; J1885; J2060; J2405; J2550; J2765; J7030; J8540; Q9967

== ENCOUNTER 2024-02-01 00:33 | Day surgery (SDC) | payer BC, SELFPAY ==
[2024-01-24 15:48] VITALS: BMI 29.9
--- NOTE | 2024-01-24 16:32 | PC.NURSE ---
Spoke with _PATIENT_ regarding medication _PLAVIX. Pt. verbalizes understanding that the last dose of PLAVIX is to be taken on _01/27/2024 and the Endoscopist will instruct them when to restart after the procedure.
[2024-02-01 07:43] VITALS: BP 116/73; PULSE 60; RESP 17; TEMP 36.2; O2SAT 95; BMI 29.5
[2024-02-01] MEDS: LACTATED RINGERS 1,000 ML 150 ML IV CONT (07:52)
--- NOTE | 2024-02-01 08:11 | WPDANESEPPF ---
Anes - Initial Pre Proc Eval Procedure: Operation Date: 02/01/24 09:00 Proposed Procedures p Esophagogastroduodenoscopy - Aldair Velasquez MD Date/Time: 02/01/24 08:11 Surgeon: Aldair Velasquez MD Pre Op Diagnosis: N&V, GERD Patient Data Age: 48 Gender: M Height: 1.83 m Weight: 98.7 kg Last Vital Signs Temp 97.1 F L 02/01/24 07:43 Pulse 60 02/01/24 07:43 Resp 17 02/01/24 07:43 BP 116/73 02/01/24 07:43 Pulse Ox 95 02/01/24 07:43 O2 Del Method Room Air 02/01/24 07:43 Allergies Allergy/AdvReac Type Severity Reaction Status Date / Time lactose AdvReac Intermediate Gastrointestinal Verified 02/01/24 07:42 Upset Home Medications Medication Instructions Recorded Confirmed Type clonazepam 0.5 mg tablet 0.5 mg PO TID PRN Anxiety 02/03/23 02/01/24 History escitalopram oxalate 20 mg tablet 20 mg PO DAILY 02/03/23 02/01/24 History lamotrigine 200 mg tablet 200 mg PO DAILY 02/03/23 02/01/24 History lisdexamfetamine 60 mg capsule 60 mg PO DAILY 09/28/23 02/01/24 History pantoprazole 40 mg tablet,delayed 40 mg PO DAILY 09/28/23 02/01/24 History release clopidogrel 75 mg tablet 75 mg PO QAM #30 tabs 09/30/23 02/01/24 Rx dextroamphetamine-amphetamine 10 10 mg PO QPM 01/24/24 02/01/24 History mg tablet Patient hx anesthesia problems: none Family hx anesthesia problems: none Results Review: All pre-operative results and documents have been reviewed as part of the pre-operative evaluation. [facility] Past Medical History Medical History GERD (gastroesophageal reflux disease) Nausea and vomiting Family History Family History Father OCD (obsessive compulsive disorder) Mother Breast cancer Thyroid ca Social History Social History Smoking packs per day: 3 Smoking cigarettes per day: 60.0 Years smoked: 10 Smoking pack-years: 30.00 Smoking status: Former smoker Tobacco type: cigarettes and e-cigarettes/vaping Additional smoking assessment comments: OCCASSIONALLY VAPES NOW Alcohol intake: current Drinks per week: 3 Alcohol use details: DRINKS Substance use: current Substance use type: marijuana Other substance usage details: OCCASSIONAL Do You Feel Safe in your Home?: Yes Lack of Transportation: No Lack of Food: Never True Current Housing: I Have Housing Concerned About Future Housing: No Difficulty Paying Gas/Electric Bills: No Difficulty Paying for Meds: No Currently Unemployed: No Education: Trade/Vocational Certificate Difficulty w/ Childcare or Family Care: No Living arrangements: with family Occupation/Education: occupation Additional occupation/education comments: [place] [employer] Gender identity (if verbalized by the patient): Male Spiritual care concerns: No Anes - Eval Final PreProcedure Day of Procedure 02/01/24 08:11 Patient weight: overweight Heart: regular rate and rhythm Lungs: clear to auscultation Airway: Mallampati scale class II Neurological: alert and oriented Last oral intake: >/= 8 hours ASA classification: III Emergent: no Anesthetic plan: proceed Anesthesia type and monitoring: general GIVS and standard monitoring Results Review: All pre-operative results and documents have been reviewed as part of the pre-operative evaluation. Hx of renal infarct/clot 09/2023, pt on plavix since, planned for 6 months, pt held for this procedure. Pt smokes marijuana often, not this am, on ADHD meds. Informed Consent: The patient's anesthetic plan and its attendant risks and benefits were discussed with the patient/family/POA. Questions were solicited and answers provided to the satisfaction of the patient/family/POA.
--- NOTE | 2024-02-01 09:06 | WPDHPUPDATE1 ---
History and Physical Update Update Date/Time: 02/01/24 09:06 History and Physical has been reviewed, including an updated exam of the patient. There are NO changes in the patient's condition. Risks, benefits, and alternatives have been discussed and questions answered. Patient agrees to proceed with procedure.
[2024-02-01 09:22] VITALS: BP 108/58; PULSE 70; RESP 17; O2SAT 93
[2024-02-01 09:32] VITALS: BP 107/61; PULSE 66; RESP 15; O2SAT 94
[2024-02-01 09:42] VITALS: BP 110/75; PULSE 70; RESP 19; O2SAT 95
== END 2024-02-01 09:55 | disposition home or self-care (01) ==
PROVIDERS: PCP Nurse Practitioner Family; Referring Provider Nurse Practitioner Family; Visit Provider Internal Medicine Gastroenterology
PROC: 0DJ08ZZ Inspection of Upper Intestinal Tract, Via Natural or Artificial Opening Endoscopic (ICD-10-PCS; CPT 43235; principal; 2024-02-01 09:00)
DX: K22.70 Barrett's esophagus without dysplasia (principal); K44.9 Diaphragmatic hernia without obstruction or gangrene; K21.9 Gastro-esophageal reflux disease without esophagitis; R11.2 Nausea with vomiting, unspecified; F41.8 Other specified anxiety disorders; Z87.891 Personal history of nicotine dependence
CPT/HCPCS: 43239; 88305; J2001; J2704; J7120